=== PATIENT | male | born 1975 | race Caucasian/White ===

== ENCOUNTER 2018-12-10 05:17 | Inpatient (IN) | payer OTHER ==
[~2018-12-10] VITALS: Ht 195.6 cm; Wt 118.7 kg
[2018-12-10] VITALS (21 sets, daily range): BP systolic 104–144; BP diastolic 60–82; PULSE 74–98; RESP 13–31; Ht 195.6 cm; Wt 118.7 kg
[~2018-12-10 05:17] MED LIST: AMLO-145 PO
--- NOTE | 2018-12-10 05:52 | HPN ---
Date/Time of Note Date/Time of Note DATE: 12/10/18 TIME: 05:52 Interval H&P Admission Note Pt. seen H&P reviewed: No system changes URI ROYAL MD Dec 10, 2018 05:52
--- NOTE | 2018-12-10 05:57 | OPR ---
Date/Time of Note Date/Time of Note DATE: 12/10/18 TIME: 05:53 Operative Report Procedure Date: Dec 10, 2018 Preoperative Diagnosis Arthritis left hip Postoperative Diagnosis 1. Left hip status post partial hip replacement with posttraumatic arthritis 2. Left hip retained hardware Operation/Procedure Performed 1. Left total hip revision arthroplasty of hemiarthroplasty to total hip 2. Left hip injection of PRP Surgeon see signature line Clinic Mgr Antwon Luna PA-C Anesthesia Type: general Estimated Blood Loss: 150 - 200 ml's Transfusion none Specimen None Grafts/Implants See op note Complications none Pt Condition Post Procedure: stable Disposition: PACU Procedure Description SUPERVISOR BLOOD SURGEON: Antwon Luna PA-C was asked to be present at my request as a result of the complexity associated with this procedure including positioning of the extremity, positioning of the instrumentation and protection of the neurovascular structures. In my opinion, the assistance offered by a cardiovascular surgical tech is insufficient and he should be compensated for his time. PROCEDURE IN DETAIL: Following the administration of general endotracheal anesthesia supplemented with a spinal anesthetic, the patient was placed in the supine position. The antecubital fossa on the left was prepped and 60 cc of blood were aspirated. Under sterile conditions, the blood was passed off to the collections representative from the company who prepared the PRP solution. The right lower extremity was then prepped and draped in the usual sterile fashion. A welding machine setter radiograph was obtained for preliminary limb length and femoral size as well as acetabular size. There was severe arthritic changes noted as well as the retained partial replacement. Over the left hip, a lateral incision was then made exposing the tensor fascia the fascia was incised the tensor was retracted laterally and the vessels were cauterized. There was extensive scarring and heterotopic ossification from the prior surgical procedure. A portion of the anterior capsule was completely ossified and this was resected. The anterior capsule was then identified and a capsulotomy was then performed and the femoral head was then evaluated. Severe arthritic changes were noted. In addition, the prior hemiarthroplasty was still in place. A femoral head cut was then made in the appropriate degree of version and inclination. Following dislocation, severe arthritic changes were noted with very severe cystic changes in the femoral head. The acetabulum was then exposed and a capsulectomy and labrectomy were completed. The central portion was then entered and serially reamed up to the 57 mm size. A [employer] [place] cup which was 58 mm, with a standard liner was then fit into position with solid fixation. A 30 mm screw was used for additional fixation. Attention was then directed to the femur, the femur was exposed and prepared. The canal was entered and serially reamed up to the size 8, high offset. The femoral canal was then thoroughly irrigated and the PRP solution was then instilled into the femoral canal. A size 8 high offset Depuy Actis stem was then inserted with solid fixation. A 36 mm, +1.5 mm femoral head, which was ceramic was then inserted. The leg was taken through full range of motion with no evident instability. In addition, radiographs revealed excellent position with reproduction of the limb lengths within a millimeter. The wound was irrigated thoroughly. The wound was then closed in layers and a Prenio for the final cover. This was watertight. Estimated blood loss was procedure was 150 cc. Postoperative radiographs will be obtained in the recovery room. URI ROYAL MD Dec 10, 2018 05:57
[2018-12-10] MEDS ORDERED: SPIR100T4 PO (06:16)
[2018-12-10] MEDS ORDERED: ATOR20TA38 PO (06:16)
[2018-12-10] MEDS ORDERED: IRBE1TAB35 PO (06:16)
[2018-12-10] MEDS: LACTATED RINGER'S 1,000 ML IV SCH ×4 (06:18→22:35)
[2018-12-10] MEDS ORDERED: BUPIVACAINE 0.5% (SDV) 30 ML, morphine SULFATE (PF) 8 MG, EPINEPHrine 0.3 MG, KETOROLAC... IRR SCH ×7 (06:30)
[2018-12-10] MEDS ORDERED: TRANEXAMIC ACID 1GM/100ML(PMX) 100 ML IVPB ONE (06:30)
[2018-12-10] MEDS ORDERED: SOD CHLORIDE 0.9% 100 ML, TRANEXAMIC ACID 3,000 MG IRR ONE ×2 (06:30)
[2018-12-10] MEDS ORDERED: CEFAZOLIN 2 GM/50 ML (PMX) 50 ML IVPB ONE (06:30)
[2018-12-10] MEDS ORDERED: GABAPENTIN 300 MG CAP PO ONE (06:30)
[2018-12-10] MEDS ORDERED: DEXAMETHASONE 1 MG TAB PO ONE (06:30)
--- NOTE | 2018-12-10 06:49 | PREAC ---
Date/Time of Note Date/Time of Note DATE: 12/10/18 TIME: 06:47 Anesthesia Eval and Record Evaluation Time Pre-Procedure Interview DATE: 12/10/18 TIME: 06:47 Age 43 Sex male NPO: 8 hrs Preoperative diagnosis Left Hip OA Planned procedure Left Anterior Total Hip Replacement Past Medical History Past Medical History: Includes Cardio: HTN, Dyslipidemia Musculoskeletal: Osteoarthritis Surgery & Anesthesia Issues No known issue Meds Anticoagulation: No Beta Osman within 24 hr: No Reason Beta Osman not given: Pt. not on B-Osman Reported Medications Atorvastatin Calcium* (Atorvastatin Calcium*) 20 Mg Tablet, 10 MG PO QHS, #30 TAB 12/10/18 Spironolactone* (Spironolactone*) 100 Mg Tablet, 100 MG PO DAILY, TAB 12/10/18 Irbesartan-Hydrochlorothiazide (Irbesartan-Hydrochlorothiazide) 300-12.5 Mg Tab, 1 EACH PO DAILY, TAB 12/10/18 Amlodipine Besylate* (Amlodipine Besylate*) 5 Mg Tablet, 5 MG PO HS 01/18/12 Current Medications Cefazolin Sodium/ Dextrose 50 ml @ 100 mls/hr PRE-OP ONCE IVPB ; Start 12/10/18 at 06:30; Stop 12/10/18 at 06:59 Tranexamic Acid 100 ml @ 200 mls/hr Pre-op ONCE IVPB ; Start 12/10/18 at 06:30; Stop 12/10/18 at 06:59 Lactated Ringer's 1,000 ml @ 25 mls/hr Q24H IV Last administered on 12/10/18at 06:18; Admin Dose 25 MLS/HR; Start 12/10/18 at 06:30 Meds reviewed: Yes Allergies Coded Allergies: No Known Allergies (Verified Allergy, Unknown, 12/10/18) Allergies Reviewed: Yes Labs/Studies Labs Reviewed: Reviewed by anesthesiologist test: N/A Studies: ECG (n/a), CXR (n/a) Pre-procedure Exam Last vitals Vital Signs Date Temp Pulse Resp B/P (MAP) Pulse Ox O2 O2 Flow FiO2 Time Delivery Rate 12/10/18 97.2 76 18 128/81 96 Room Air 06:13 (97) Airway: Adequate mouth opening, Adequate thyromental dist Mallampati: Mallampati II Teeth: Normal Lung: Normal Heart: Normal ASA Physical Status ASA physical status: 2 Emergency: None Planned Anesthetic General/MAC: ETT, LMA Neuraxial: Spinal Nerve block: Other (Left Fascia Iliaca) Planned Pain Management Sub-arachniod narcotics, Single shot nerve block, Parenteral pain med Pre-operative Attestations Prior to commencing anesthesia and surgery, the patient was re-evaluated, there was verification of: *The patient's identity *The results of appropriate recent lab work and preoperative vital signs *The above evaluation not changing prior to induction *Anesthetic plan, risk benefits, alternative and complications discussed with patient/family; questions answered; patient/family understands, accepts and wishes to proceed. MEHDI GODFREY MD Dec 10, 2018 06:49
[2018-12-10] MEDS ORDERED: CA CHLORIDE (GM) 10% 10 ML INJ ONE (06:53)
[2018-12-10] MEDS ORDERED: POLYMYXIN/BACITRACIN 1L IRRIG ONE (06:53)
[2018-12-10] MEDS ORDERED: TRANEXAMIC ACID 1GM/100ML(PMX) 100 ML ONE ×3 (06:53→08:48)
[2018-12-10] MEDS ORDERED: THROMBIN 5000 UNIT VIAL ONE (06:53)
[2018-12-10] MEDS ORDERED: DESFLURANE 15 MIN ONE (07:00)
[2018-12-10] MEDS ORDERED: PROPOFOL 100 ML ONE (07:00)
[2018-12-10] MEDS ORDERED: morphine SULFATE/PF (10 MG/10 ML) INJ ONE (07:01)
[2018-12-10] MEDS ORDERED: MIDAZOLAM 1 MG/ML 2 ML INJ ONE (07:01)
[2018-12-10] MEDS ORDERED: METOCLOPRAMIDE 10 MG INJ ONE (07:25)
[2018-12-10] MEDS ORDERED: CEFAZOLIN 1 GM INJ ONE (07:25)
[2018-12-10] MEDS ORDERED: KETOROLAC 30 MG INJ ONE (07:25)
[2018-12-10] MEDS ORDERED: DEXAMETHASONE 4 MG/ML 5 ML INJ ONE (07:25)
[2018-12-10] MEDS ORDERED: ROCURONIUM 50 MG INJ ONE (07:25)
[2018-12-10] MEDS ORDERED: ONDANSETRON 4 MG INJ ONE (07:25)
[2018-12-10] MEDS ORDERED: ROPIVACAINE 0.2% 20 ML VIAL ONE (07:26)
[2018-12-10] MEDS ORDERED: OXYCODONE/ACETAMINOPHEN (5/325) TAB PO PRN ×2 (08:00)
[2018-12-10] MEDS ORDERED: EPHEDrine 25 MG/5 ML SYG IV PRN (08:00)
[2018-12-10] MEDS ORDERED: ACETAMINOPHEN 500 MG TAB PO PRN (08:00)
[2018-12-10] MEDS ORDERED: NALOXONE (0.4 MG/ML) INJ IV PRN (08:00)
[2018-12-10] MEDS ORDERED: morphine 2 MG INJ IV PRN ×2 (08:00)
[2018-12-10] MEDS ORDERED: ONDANSETRON 4 MG INJ IV PRN ×3 (08:00→09:30)
[2018-12-10] MEDS ORDERED: MEPERIDINE 25 MG INJ IV PRN (08:00)
[2018-12-10] MEDS ORDERED: METOCLOPRAMIDE 10 MG INJ IV PRN (08:00)
[2018-12-10] MEDS ORDERED: HYDROmorphONE 0.5 MG/0.5 ML SYG IV PRN ×2 (08:00)
[2018-12-10] MEDS ORDERED: DIPHENHYDRAMINE 50 MG INJ IV PRN ×3 (08:00→09:30)
[2018-12-10] MEDS ORDERED: LABETALOL HCL 20MG INJ IV PRN (08:00)
[2018-12-10] MEDS ORDERED: NALBUPHINE HCL (10 MG/1 ML) INJ IV PRN (08:00)
[2018-12-10] MEDS ORDERED: KETOROLAC 30 MG INJ IV PRN (08:00)
[2018-12-10] MEDS ORDERED: hydrALAzine 20 MG INJ IV PRN (08:00)
[2018-12-10] MEDS ORDERED: FENTAnyl 50 MCG/ML VIAL IV PRN ×3 (08:00)
[2018-12-10] MEDS ORDERED: HYDROmorphONE 1 MG/5 ML IV SYRINGE IV PRN ×3 (08:00)
[2018-12-10] MEDS ORDERED: SUGAMMADEX SODIUM 200 MG/2 ML VIAL IV ONE (08:17)
[2018-12-10] MEDS ORDERED: EPHEDrine 25 MG/5 ML SYG ONE (08:18)
[2018-12-10] MEDS ORDERED: HETASTARCH 6% NACL 500 ML ONE (08:18)
[2018-12-10] MEDS ORDERED: PHENYLephrine (100 MCG/ML) 10ML SYG ONE (08:18)
--- NOTE | 2018-12-10 09:16 | PDOCDIS ---
Discharge Instructions DIAGNOSIS Discharge Diagnosis Arthritis of the hip CONDITION [id number] Patient Condition: [id number] Good HOME CARE INSTRUCTIONS: [id number] Diet Instructions: [id number] Regular ACTIVITY: [id number] Activity Restrictions: [id number] Slowly Increase Activity Keep Limb Elevated [id number] Bathing Restrictions: [id number] Shower FOLLOW UP/APPOINTMENTS Follow-up Plan 2 weeks in the office SCHOOL/WORK RELEASE May return to School/Work with: With Restrictions School/Work Release Comment: No hip extension for 3 months URI ROYAL MD Dec 10, 2018 09:16
[2018-12-10] MEDS ORDERED: MAGNESIUM HYDROXIDE 30ML CUP PO PRN (09:30)
[2018-12-10] MEDS ORDERED: NACL 0.9% 3 ML SYG IV SCH (09:30)
[2018-12-10] MEDS ORDERED: oxyCODONE 5 MG TAB PO PRN ×3 (09:30)
[2018-12-10] MEDS ORDERED: ZOLPIDEM 5 MG TAB PO PRN (09:30)
[2018-12-10] MEDS ORDERED: HYDROmorphONE 1 MG/ML SYG IV PRN (09:30)
[2018-12-10] MEDS: ACETAMINOPHEN 1000MG/100ML IV 100 ML IVPB SCH ×2 (10:18→18:11)
--- NOTE | 2018-12-10 11:24 | PAC ---
Date/Time of Note Date/Time of Note DATE: 12/10/18 TIME: 11:24 Post-Anesthesia Notes Post-Anesthesia Note Last documented vital signs Vital Signs Date Temp Pulse Resp B/P (MAP) Pulse Ox O2 O2 Flow FiO2 Time Delivery Rate 12/10/18 84 22 118/78 94 Room Air 10:38 (91) 12/10/18 97.6 10:23 12/10/18 6.0 09:49 Activity: WNL Respiratory function: WNL Cardiovascular function: WNL Mental status: Baseline Pain reasonably controlled: Yes Hydration appropriate: Yes Nausea/Vomiting absent: Yes MEHDI GODFREY MD Dec 10, 2018 11:24
[2018-12-10] MEDS: DEXAMETHASONE 2 MG TAB PO SCH ×3 (11:59→23:51)
[2018-12-10] MEDS: CEFAZOLIN 1 GM/50 ML (PMX) 50 ML IVPB SCH ×2 (11:59→19:43)
[2018-12-10] MEDS: SENNA/DOCUSATE NA (8.6MG/50MG) TAB PO SCH (20:54)
[2018-12-10] MEDS ORDERED: GABAPENTIN 300 MG CAP PO SCH (21:00)
[2018-12-10] MEDS ORDERED: AMLODIPINE 5 MG TAB PO SCH (21:00)
[2018-12-10] MEDS ORDERED: ATORVASTATIN 10 MG TAB PO SCH (21:00)
[2018-12-11] MEDS: ACETAMINOPHEN 1000MG/100ML IV 100 ML IVPB SCH (01:48)
[2018-12-11 04:00] VITALS: BP 124/70; PULSE 77; RESP 18
[2018-12-11] MEDS: CEFAZOLIN 1 GM/50 ML (PMX) 50 ML IVPB SCH (05:07)
[2018-12-11] MEDS: DEXAMETHASONE 2 MG TAB PO SCH (05:12)
--- NOTE | 2018-12-11 05:28 | PN ---
Date/Time of Note Date/Time of Note DATE: 12/11/18 TIME: 05:27 Subjective Awake and alert with minimal complaints. Objective Vitals Vital Signs Date Temp Pulse Resp B/P (MAP) Pulse Ox O2 O2 Flow FiO2 Time Delivery Rate 12/10/18 98.3 90 18 128/67 95 23:55 (87) 12/10/18 Room Air 14:28 12/10/18 6.0 09:49 Intake and Output 12/10/18 12/10/18 12/11/18 1515:00 23:00 07:00 IntakeIntake Total 3290 ml 1500 ml 100 ml OutputOutput Total 400 ml 1800 ml BalanceBalance 2890 ml -300 ml 100 ml Wound clean and dry. Neurologically intact. No signs of DVT. Results Result Diagram: 12/11/18 0428 Medications Medications Current Medications Lactated Ringer's 1,000 ml @ 25 mls/hr Q24H IV Last administered on 12/10/18at 06:18; Admin Dose 25 MLS/HR; Start 12/10/18 at 06:30 Hydromorphone HCl (Dilaudid) 0.2 mg Q2H PRN IV .PAIN 1-5; Start 12/10/18 at 08 :00 Hydromorphone HCl (Dilaudid) 0.4 mg Q2H PRN IV .PAIN 6-10; Start 12/10/18 at 08:00 Morphine Sulfate (morphine) 2 mg Q2H PRN IV .PAIN 1-5; Start 12/10/18 at 08:00 Morphine Sulfate (morphine) 4 mg Q2H PRN IV .PAIN 6-10; Start 12/10/18 at 08:00 Ketorolac Tromethamine (Toradol) 30 mg Q6H PRN IV .PAIN 6-10; Start 12/10/18 at 08:00; Stop 12/13/18 at 07:59 Acetaminophen (Tylenol Tab) 500 mg Q4H PRN PO .PAIN 1-3; Start 12/10/18 at 08:00 Acetaminophen/ Hydrocodone Bitart ([place] (5/325)) 1 tab Q4H PRN PO .PAIN 4-6; Start 12/10/18 at 08:00 Diphenhydramine HCl (Benadryl) 25 mg Q4H PRN IV .PRURITUS; Start 12/10/18 at 08:00 Nalbuphine HCl (Nubain) 10 mg Q4H PRN IV .PRURITUS; Start 12/10/18 at 08:00 Ondansetron HCl (Zofran Inj) 4 mg Q6H PRN IV .NAUSEA/VOMITING; Start 12/10/18 at 08:00 Naloxone HCl (Narcan) 0.2 mg Q2M PRN IV .RESP RATE; Start 12/10/18 at 08:00 Miscellaneous Information (* Miscellaneous Pharmacy Order) DURAMORPH: 0.2 MG SPI... GIVEN NEURAXIAL XX ; Start 12/10/18 at 08:00 Amlodipine Besylate (Norvasc) 5 mg HS PO Last administered on 12/10/18at 20:54; Admin Dose 5 MG; Start 12/10/18 at 21:00 Atorvastatin Calcium (Lipitor) 10 mg QHS PO Last administered on 12/10/18at 20:53; Admin Dose 10 MG; Start 12/10/18 at 21:00 Spironolactone (Aldactone) 100 mg DAILY PO ; Start 12/11/18 at 09:00 Losartan Potassium (Cozaar) 100 mg DAILY PO ; Start 12/11/18 at 09:00 Lactated Ringer's 1,000 ml @ 100 mls/hr Q10H IV Last administered on 12/10/18at 22:35; Admin Dose 100 MLS/HR; Start 12/10/18 at 09:13 Senna/Docusate Sodium (Senokot-S) 1 tab BID PO Last administered on 12/10/18at 20:54; Admin Dose 1 TAB; Start 12/10/18 at 21:00 Simethicone (Mylicon) 80 mg TID PRN PO .GAS; Start 12/10/18 at 09:30 Magnesium Hydroxide (Milk Of Mag) 30 ml BID PRN PO .CONSTIPATION; Start 12/10/18 at 09:30 Magnesium Hydroxide (Milk Of Mag) 30 ml HS PO ; Start 12/12/18 at 21:00 Dexamethasone (Decadron) 2 mg Q6 PO Last administered on 12/11/18at 05:12; Admin Dose 2 MG; Start 12/10/18 at 12:00; Stop 12/11/18 at 06:01 Gabapentin (Neurontin) 300 mg HS PO Last administered on 12/10/18at 20:54; Admin Dose 300 MG; Start 12/10/18 at 21:00 Oxycodone HCl (Roxicodone) 15 mg Q4H PRN PO .PAIN; Start 12/10/18 at 09:30 Oxycodone HCl (Roxicodone) 10 mg Q4H PRN PO .PAIN; Start 12/10/18 at 09:30 Oxycodone HCl (Roxicodone) 5 mg Q4H PRN PO .PAIN; Start 12/10/18 at 09:30 Hydromorphone HCl (Dilaudid) 1 mg Q4H PRN IV .BREAKTHROUGH PAIN; Start 12/10/18 at 09:30 Ondansetron HCl (Zofran Inj) 4 mg Q6H PRN IV NAUSEA/VOMITING; Start 12/10/18 at 09:30 Diphenhydramine HCl (Benadryl) 25 mg Q6H PRN IV .PRURITUS; Start 12/10/18 at 09:30 Zolpidem Tartrate (Ambien) 10 mg HS PRN PO .INSOMNIA; Start 12/10/18 at 09:30 IV Flush (NS 3 ml) 3 ml per protocol IV ; Start 12/10/18 at 09:30 Aspirin (Ecotrin) 325 mg DAILY PO ; Start 12/11/18 at 09:00 Hydrochlorothiazide (Hydrochlorothiazide) 12.5 mg DAILY PO ; Start 12/11/18 at 09:00 VTE Prophylaxis Risk score (from Nsg)>0 risk: 8 SCD applied (from Ns): Yes Lines/Catheters IV Catheter Type: Saline Lock Navarro in Place: No Assessment/Plan Assessment/Plan Assessment: Status post total hip Plan: Begin PT this morning. Discharge when cleared by PT URI ROYAL MD Dec 11, 2018 05:28
--- NOTE | 2018-12-11 05:28 | DS ---
Date/Time of Note Date/Time of Note DATE: 12/11/18 TIME: 05:28 Discharge Summary Admission/Discharge Info Admit Date/Time Dec 10, 2018 at 05:17 Discharge Date/Time 12/11/2018 Discharge Diagnosis Arthritis of the hip Patient Condition: Good Hospital Course Admitted and underwent uncomplicated procedure. Postop day 1 discharge after PT Home Meds Reported Medications Atorvastatin Calcium* (Atorvastatin Calcium*) 20 Mg Tablet, 10 MG PO QHS, #30 TAB 12/10/18 Spironolactone* (Spironolactone*) 100 Mg Tablet, 100 MG PO DAILY, TAB 12/10/18 Irbesartan-Hydrochlorothiazide (Irbesartan-Hydrochlorothiazide) 300-12.5 Mg Tab, 1 EACH PO DAILY, TAB 12/10/18 Amlodipine Besylate* (Amlodipine Besylate*) 5 Mg Tablet, 5 MG PO HS 01/18/12 Follow-up Plan 2 weeks in the office Primary Care Provider Dandy Montgomery MD Pending Labs Laboratory Tests Test 12/10/18 06:38 12/10/18 09:45 12/10/18 09:55 12/11/18 04:28 Bedside 177 219 Glucose mg/dL (70-220) mg/dL (70-220) White Blood 9.2 13.3 Count 10^3/ul (4.8-1 10^3/ul (4.8-1 0.8) 0.8) Red Blood 4.03 3.77 Count 10^6/ul (4.70- 10^6/ul (4.70- 6.10) 6.10) Hemoglobin 12.8 12.0 g/dl (14.0-18. g/dl (14.0-18. 0) 0) Hematocrit 37.1 34.8 % (42.0-52.0) % (42.0-52.0) Mean 92.1 92.3 Corpuscular fl (82.0-101.0 fl (82.0-101.0 Volume ) ) Mean 31.8 31.8 Corpuscular pg (29.0-33.0) pg (29.0-33.0) Hemoglobin Mean 34.5 34.5 Corpuscular g/dl (32.0-37. g/dl (32.0-37. Hemoglobin Conc 0) 0) ent Red Cell 11.9 11.9 Distribution % (11.5-14.5) % (11.5-14.5) Width Platelet Count 219 227 10^3/UL (140-4 10^3/UL (140-4 15) 15) Mean Platelet 10.6 11.0 Volume fl (7.4-10.4) fl (7.4-10.4) Immature 1.300 0.700 Granulocytes % % (0.001-0.429 % (0.001-0.429 ) ) Neutrophils % 84.2 86.0 % (39.0-77.0) % (39.0-77.0) Lymphocytes % 11.0 6.8 % (15.0-51.0) % (15.0-51.0) Monocytes % 1.7 6.4 % (0.0-11.0) % (0.0-11.0) Eosinophils % 1.4 0.0 % (0.0-7.0) % (0.0-7.0) Basophils % 0.4 0.1 % (0.0-2.0) % (0.0-2.0) Nucleated Red 0.0 0.0 Blood Cells % /100WBC (0.0-0 /100WBC (0.0-0 .0) .0) Immature 0.120 0.090 Granulocytes # 10^3/ul (0.0-0 10^3/ul (0.0-0 .031) .031) Neutrophils # 7.7 11.5 10^3/ul (1.6-7 10^3/ul (1.6-7 .5) .5) Lymphocytes # 1.0 0.9 10^3/ul (0.8-2 10^3/ul (0.8-2 .9) .9) Monocytes # 0.2 0.9 10^3/ul (0.3-0 10^3/ul (0.3-0 .9) .9) Eosinophils # 0.1 0.0 10^3/ul (0.0-0 10^3/ul (0.0-0 .5) .5) Basophils # 0.0 0.0 10^3/ul (0.0-0 10^3/ul (0.0-0 .1) .1) Nucleated Red 0.0 0.0 Blood Cells # 10^3/ul (0.0-0 10^3/ul (0.0-0 .0) .0) URI ROYAL MD Dec 11, 2018 05:28
[2018-12-11] MEDS: LACTATED RINGER'S 1,000 ML IV SCH (06:30)
[2018-12-11 07:22] VITALS: BP 113/67; PULSE 79; RESP 18
[2018-12-11] MEDS: SENNA/DOCUSATE NA (8.6MG/50MG) TAB PO SCH (08:19)
[2018-12-11] MEDS: HYDROCODONE/APAP (5/325) TAB PO PRN ×2 (08:20→12:08)
[2018-12-11] MEDS ORDERED: ASPIRIN (EC) 325 MG TAB PO SCH (09:00)
[2018-12-11] MEDS ORDERED: HYDROCHLOROTHIAZIDE 12.5 MG CAP PO SCH (09:00)
[2018-12-11] MEDS ORDERED: SPIRONOLACTONE 50 MG TAB PO SCH (09:00)
[2018-12-11] MEDS ORDERED: LOSARTAN 50 MG TAB PO SCH (09:00)
[2018-12-12] MEDS ORDERED: MAGNESIUM HYDROXIDE 30ML CUP PO SCH (21:00)
== END 2018-12-11 13:18 | disposition home or self-care (01) | DRG 468 ==
LOC: REC 05:17 → MS1 10:54
PROVIDERS: ADMIT Orthopaedic Surgery; ATTEND Orthopaedic Surgery
PROC: 0SPB0JZ Removal of Synthetic Substitute from Left Hip Joint, Open Approach (ICD-10-PCS; 2018-12-10)
PROC: 0SRB04A Replacement of Left Hip Joint with Ceramic on Polyethylene Synthetic Substitute, Uncemented, Open Approach (ICD-10-PCS; principal; 2018-12-10 07:00)
DX: M16.52 Unilateral post-traumatic osteoarthritis, left hip (principal); E78.2 Mixed hyperlipidemia; E11.9 Type 2 diabetes mellitus without complications; I10 Essential (primary) hypertension
CPT/HCPCS: 72170; 73530; 82962; 85025; 86999; 87086; 88304; 88311; 97116; 97161; C1713; C1776; J0131; J0171; J0690; J0735; J1100; J1200; J1885; J2250; J2274; J2370; J2405; J2765; J2795; J3370; J7120